=== PATIENT | female | born 1945 | race Caucasian/White ===

== ENCOUNTER 2016-05-11 13:41 | Outpatient (CLI) | payer MEDICARE, OTHER | END 2016-05-11 13:42 | disposition home or self-care (01) | DX: M50.322 Other cervical disc degeneration at C5-C6 level (principal); M51.34 Other intervertebral disc degeneration, thoracic region ==

== ENCOUNTER 2019-05-28 16:00 | Outpatient (CLI) | payer MEDICARE, OTHER ==
--- NOTE | 2019-05-29 02:30 | XRAY Report ---
Reason: PAIN AND EDEMA 5TH AND 5TH MP Procedure Date: 05/28/2019 Accession Number: [id number] / [id number] Procedure: XR - Foot 3 View LT CPT Code: Final Report FULL RESULT: EXAM: LEFT FOOT RADIOGRAPHY EXAM DATE: 05/28/2019 04:51 PM. CLINICAL HISTORY: PAIN AND EDEMA 5TH AND 5TH MP. COMPARISON: None. TECHNIQUE: 3 views. FINDINGS: A bunion is seen along the first metatarsal head with prominence of the overlying soft tissues. There is no evidence of acute fracture or dislocation. No suspicious lytic or blastic lesions are seen. IMPRESSION: No acute osseous abnormality. First metatarsal bunion. RADIA
== END 2019-05-28 16:01 | disposition home or self-care (01) ==
LOC: DI 16:00
PROVIDERS: ATTEND Podiatrist
DX: M21.612 Bunion of left foot (principal)

== ENCOUNTER 2020-01-15 09:54 | Outpatient (CLI) | payer MEDICARE, OTHER ==
--- NOTE | 2020-01-15 15:36 | DEXA Report ---
PROCEDURE: Dexa Spine and/or Hip INDICATIONS: POSTMENOPAUSAL TECHNIQUE: Dual energy x-ray absorptiometry (DXA) was performed on a [email or web address] System. Regions measur ed are the AP Spine, femoral neck, and if needed forearm. COMPARISON: None. FINDINGS: Lumbar Spine: Bone Mineral Density 1.068 g/cm/cm,T score -0.9, normal Left Hip: Bone Mineral Density 0.757 g/cm/cm,T score -2.0, moderate to severe osteopenia. Left Femoral Neck: Bone Mineral Density 0.811 g/cm/cm, T score -1.6, mild to moderate osteopenia. (T score greater or equal to -1.0: NORMAL) (T score from -1.1 to -2.4: OSTEOPENIA) (T score less than or equal to -2.5 to: OSTEOPOROSIS) Impression: Osteopenia in the hip and femoral neck, most severe in the hip. Patients with diagnosis of osteoporosis or osteopenia should have regular bone mineral density assess ment. For those eligible for Medicare, routine testing is allowed once every 2 years. Testing frequ ency can be increased for patients who have rapidly progressing disease or for those who are receivin g medical therapy to restore bone mass. Reviewed by: Ilda Mooney MD on 01/15/2020 3:35 PM PDT Approved by: Ilda Mooney MD on 01/15/2020 3:35 PM PDT Station ID: [id number]
== END 2020-01-15 09:55 | disposition home or self-care (01) ==
LOC: DI 09:54
PROVIDERS: ATTEND Physician Assistant
DX: M85.89 Other specified disorders of bone density and structure, multiple sites (principal); Z78.0 Asymptomatic menopausal state
CPT/HCPCS: 77080

== ENCOUNTER 2020-08-06 06:36 | Outpatient (CLI) | payer MEDICARE, OTHER ==
--- NOTE | 2020-08-06 17:47 | XRAY Report ---
PROCEDURE: Hips 2V BILAT INDICATIONS: BILATERAL HIP PAIN TECHNIQUE: AP and frog-leg lateral views of the hip were acquired. COMPARISON: None. FINDINGS: Bones: Diffuse osteopenia. Moderate right and moderate-severe left bilateral hip degenerative change . No definite fracture identified. There is subtle lucency extending across the subcapital region of the left femoral neck possibly related to superimposition of posterior acetabular wall with marginal osteophytes. Otherwise, no definite fracture identified. Degenerative changes of the lower lumbar spi ne. No suspicious osseous lesions. The visualized pelvic ring appears intact. Soft tissues: No suspicious soft tissue calcifications or masses. IMPRESSION: Moderate right and moderate-severe left bilateral hip degenerative change. Subtle lucency across the subcapital region of the left femoral neck posture related to superimpositi on of overlapping structures although a nondisplaced fracture not excluded given history of trauma. P er report, patient's pain is on the right side. Recommend correlation with examination and considerat ion for advanced imaging with either CT or MRI. MRI would be more sensitive. Diffuse osteopenia. Lower lumbar spondylosis. Reviewed by: Emre Acosta MD on 08/06/2020 5:46 PM PDT Approved by: Emre Acosta MD on 08/06/2020 5:46 PM PDT Station ID: [id number]
== END 2020-08-06 06:37 | disposition home or self-care (01) ==
LOC: DI 06:36
PROVIDERS: ATTEND Nurse Practitioner Family
DX: M25.551 Pain in right hip (principal); M25.552 Pain in left hip; M16.0 Bilateral primary osteoarthritis of hip; M85.89 Other specified disorders of bone density and structure, multiple sites; M47.816 Spondylosis without myelopathy or radiculopathy, lumbar region

== ENCOUNTER 2020-09-26 12:57 | Outpatient (CLI) | payer MEDICARE, OTHER ==
--- NOTE | 2020-09-26 16:21 | XRAY Report ---
PROCEDURE: Hip w/Pelvis 2-3V RT INDICATIONS: RIGHT HIP PAIN TECHNIQUE: AP pelvis with lateral view(s) of the right hip(s). COMPARISON: Pelvis and bilateral hips dated 08/06/2020 FINDINGS: Bones: No fractures or dislocations. Pelvic ring appears intact. No suspicious bony lesions. Moder ate to severe left hip degenerative change. Moderate right hip degenerative change. Soft tissues: The visualized bowel gas pattern is normal. No suspicious soft tissue calcifications. IMPRESSION: 1. Moderate right hip degenerative change. 2. Moderate to severe left hip degenerative change. No evidence acute bony abnormality of the pelvis and right hip Reviewed by: Elian Syed MD on 09/26/2020 3:19 PM SHERRY Approved by: Elian Syed MD on 09/26/2020 3:19 PM SHERRY Station ID: [id number]
--- NOTE | 2020-09-26 16:30 | XRAY Report ---
PROCEDURE: Sacrum/Coccyx INDICATIONS: RIGHT HIP PAIN TECHNIQUE: 3 views of the sacrum and coccyx acquired. COMPARISON: None FINDINGS: Bones: No fractures or dislocations. No suspicious bony lesions. Soft tissues: Visualized bowel gas pattern is normal. No suspicious soft tissue densities. IMPRESSION: No evidence acute bony abnormality of the sacrum and coccyx. Reviewed by: Elian Syed MD on 09/26/2020 3:29 PM SHERRY Approved by: Elian Syed MD on 09/26/2020 3:29 PM AKDT Station ID: [id number]
--- NOTE | 2020-09-26 18:12 | Ultrasound Report ---
PROCEDURE: Head or Neck Soft Tissue INDICATIONS: MASS ON CLAVICLE TECHNIQUE: Real time scanning was performed of the neck region of interest, with image documentation . COMPARISON: None. FINDINGS: Focused ultrasound examination of right anterior chest wall at the level of medial right cl avicular head shows heterogeneously hypoechoic and solid appearing structure adjacent to the medial h ead of right clavicle and measures 1.3 x 0.5 x 2.5 cm in size. Internal vascularity is seen. This str ucture appears slightly compressible. IMPRESSION: Solid-appearing hypoechoic lesion adjacent to the medial head of right clavicle and measures 1.3 x 0. 5 x 2.5 cm in size without internal vascularity. Consider CT of chest with contrast for further evalu ation of this region. Reviewed by: Ke Jones MD on 09/26/2020 6:10 PM PDT Approved by: Ke Jones MD on 09/26/2020 6:10 PM PDT Station ID: [id number]
== END 2020-09-26 12:58 | disposition home or self-care (01) ==
LOC: DI 12:57
PROVIDERS: ATTEND Nurse Practitioner Family
DX: R93.7 Abnormal findings on diagnostic imaging of other parts of musculoskeletal system (principal); M16.0 Bilateral primary osteoarthritis of hip; M54.5 Low back pain

== ENCOUNTER 2023-04-10 08:00 | Outpatient (CLI) | payer MEDICARE, BC | END 2023-04-10 23:59 | disposition home or self-care (01) | LOC: LAB.N 08:00 | PROVIDERS: ATTEND Nurse Practitioner | DX: N39.0 Urinary tract infection, site not specified (principal) | CPT/HCPCS: 87086; 87181 ==

== ENCOUNTER 2023-09-07 09:00 | Outpatient (CLI) | payer MEDICARE, BC | END 2023-09-07 09:15 | disposition home or self-care (01) | LOC: LAB.N 09:00 | PROVIDERS: ATTEND Physician Assistant Medical | DX: N39.0 Urinary tract infection, site not specified (principal) | CPT/HCPCS: 87086 ==